=== PATIENT | male | born 1975 | race Caucasian/White ===

== ENCOUNTER → 2025-10-06 | Outpatient (CLI) | payer BC, SELFPAY ==
[2025-10-06 09:05] LABS: Collection Type, Urine Clean Catch; Squamous Epithelial Cell,Urine 0 /hpf (0-5)
[2025-10-06 09:22] LABS: Basophils # (Auto) 0.0 Thou/mm3 (0.0-0.2); Basophils % (Auto) 0 % (0-2.5); Eosinophils # (Auto) 0.1 Thou/mm3 (0.0-0.5); Eosinophils % (Auto) 1 % (0-10); Hematocrit 44.1 % (41.0-53.0); Hemoglobin 14.4 g/dL (13.5-16.0); Immature Granulocytes Auto 0.05 Thou/mm3 (0.00-0.00); Lymphocytes # (Auto) 2.1 Thou/mm3 (1.0-4.8); Lymphocytes % (Auto) 22 % (10-50); Mean Corpuscular HGB Conc 32.7 g/dl (31.0-37.0); Mean Corpuscular Hemoglobin 25.7 pg (25.0-35.0); Mean Corpuscular Volume 79 fL (80-100); Monocytes # (Auto) 1.0 Thou/mm3 (0.0-0.8); Monocytes % (Auto) 11 % (0-12); Neutrophils # (Auto) 6.3 Thou/mm3 (1.8-7.7); Neutrophils % (Auto) 66 % (37-80); Nucleated Red Blood Cell # 0.00 Thou/mm3 (0.00-0.00); Nucleated Red Blood Cell % 0 /100 WBC (0); Platelet Count 258 Thou/mm3 (140-440); RDW Standard Deviation 41.6 fL (35.1-43.9); Red Blood Count 5.60 Miln/mm3 (4.50-5.90); White Blood Count 9.7 Thou/mm3 (3.8-10.6)
[2025-10-06 09:25] LABS: Bilirubin,Urine Negative (Negative); Blood,Urine Negative (Negative); Clarity,Urine Clear (Clear/Hazy); Color,Urine Yellow (Lt Yel-Yel); Glucose, Urine Negative (Negative); Ketones,Urine Trace (Negative); Leukocyte Esterase,Urine Negative (Negative); Nitrite,Urine Negative (Negative); PH,Urine 6.5 (5.0-7.0); Protein,Urine 2+ (Neg - Trace); RBC,Urine 2 /hpf (0-3); Specific Gravity,Urine 1.026 (1.001-1.035); Urobilinogen,Urine Negative mg/dL (0.0-1.0); WBC,Urine 1 /hpf (0-5)
[2025-10-06 09:36] LABS: Glucose Estimated Average 186 mg/dL (80-131); Hemoglobin A1C 8.1 % Hgb (4.8-6.0)
[2025-10-06 09:44] LABS: Prostate Specific Antigen 0.74 ng/mL (0-4.00)
[2025-10-06 09:50] LABS: Vitamin B12 299 pg/mL (211-911); Vitamin D 25 Hydroxy Total 32.5 ng/mL (7.3-40.2)
[2025-10-06 09:53] LABS: Alanine Aminotransferase 49 U/L (10-49); Albumin, Serum 4.7 gm/dL (3.5-5.0); Albumin/Globulin Ratio 2.1 (1.2-2.2); Alkaline Phosphatase 49 U/L (46-116); Anion Gap 12 (7-16); Aspartate Amino Transferase 49 U/L (0-34); BUN/Creatinine Ratio 10 Ratio (12-20); Bilirubin,Total 0.8 mg/dL (0.3-1.2); Blood Urea Nitrogen 11 mg/dL (9-23); Calcium 9.4 mg/dL (8.3-10.6); Calcium (Corrected) 9.4 mg/dL (8.5-10.1); Carbon Dioxide 31.9 mMol/L (20.0-31.0); Cardiac Risk Estimate 3.8 RATIO (4.0-6.7); Chloride 93 mMol/L (98-107); Cholesterol 146 mg/dL (132-200); Creatinine (Component) 1.1 mg/dL (0.6-1.3); Globulin 2.2 gm/dL (2.3-3.5); Glucose 189 mg/dL (74-106); HDL Cholesterol 38 mg/dL (40-60); LDL Cholesterol,Calculated 67 mg/dL (0-130); Osmolality,Calculated 278 (275-295); Potassium 3.6 mMol/L (3.4-5.1); Sodium 137 mMol/L (136-145); Thyroid Stimulating Hormone 1.12 uIU/mL (0.55-4.78); Total Protein 6.9 gm/dL (5.7-8.2); Triglycerides 203 mg/dL (30-150); Uric Acid 6.9 mg/dL (3.7-9.2); eGFR > 60 See Note
[2025-10-06 10:03] LABS: Creatinine MALB Rnd Ur 240 mg/dL (30-125)
[2025-10-06 10:05] LABS: Microalbumin Creat Ratio 282 mg/gCrea (<30); Microalbumin, Random Urine 676 mg/L (0-300)
[2025-10-13 06:23] LABS: Testosterone, Free,Dialysis 118.7 pg/mL (35.0-155.0); Testosterone, Total, Dialysis 601 ng/dL (250-1100)
== END | disposition home or self-care (01) ==
LOC: COPL 08:23
PROVIDERS: PCP Internal Medicine; Referring Provider Internal Medicine; Visit Provider Internal Medicine Endocrinology, Diabetes & Metabolism
DX: Z00.00 Encounter for general adult medical examination without abnormal findings (principal); E11.9 Type 2 diabetes mellitus without complications; E29.1 Testicular hypofunction
CPT/HCPCS: 36415; 80053; 80061; 81001; 82043; 82306; 82570; 82607; 83036; 84153; 84402; 84403; 84443; 84550; 85025